=== PATIENT | female | born 1940 | race Caucasian/White ===

== ENCOUNTER 2016-07-15 12:04 | Observation (INO) | payer MEDICARE, OTHER ==
[~2016-07-15 12:04] MED LIST: ASPI325T6 PO; AZO-STANDARD95 MG PO; COLACE 100100 MG/CAP PO; FOLIC ACID0.4 MG PO; LEXAPRO 10MG10 MG PO; LIPITOR 10MG10 MG PO; MULTIPLE VITAMI1 CAP PO; NITROSTAT0.4 MG/TAB SL; NORCO 325 MG-51 TAB PO; OMEGA-31 SGL PO; PROVENTIL0.09 MG/A1 IH; RT ADVAIR 228 DISKUS IH; TYLENOL 325MG325 MG PO; VESICARE 5MG5 MG PO; VESICARE10 MG PO; VITAMIN B1250 MCG PO; VITAMIN D 50,1.25 MG PO; VITAMIN D5000 IU PO; ZITHROMAX Z PA250 MG PO
[2016-07-15] MEDS ORDERED: LEXAPRO20 MG PO (14:07)
[2016-07-15 18:37] LABS: BASO % 0.5 % (0.0-2.0); EOS # 0.1 (0.0-0.7); EOS % 0.9 % (0-4.0); GRAN # 5.8 (1.4-6.5); GRAN % 74.7 % (42.2-75.2); HEMATOCRIT 40.6 % (37.0-47.0); LYMPH # 1.4 (1.2-3.4); LYMPH % 18.2 % (20.0-51.0); MEAN CELL VOLUME 96 fl (80.0-100.0); MEAN CORPUSCULAR HEMOGLOBIN 33 pg (27.0-31.0); MEAN CORPUSCULAR HGB CONC 35 g/dl (33.0-37.0); MEAN PLATELET VOLUME 9.5 fl (7.4-10.4); MONO # 0.4 (0.1-0.6); MONO % 5.1 % (1.7-9.3); PLATELET COUNT 207 K/mm3 (130-400); RED BLOOD COUNT 4.23 M/mm3 (4.10-5.30); WHITE BLOOD COUNT 7.7 K/mm3 (4.8-10.8)
[2016-07-15 19:37] LABS: CALCIUM 9.2 mg/dL (8.4-10.2); CREATININE, serum 0.74 mg/dL (0.52-1.25); POTASSIUM 3.6 mmol/L (3.4-5.0)
[2016-07-15 23:24] VITALS: BP 123/53; PULSE 65; TEMP 98.3
[2016-07-16] VITALS (8 sets, daily range): BP systolic 92–137; BP diastolic 43–75; PULSE 59–83; TEMP 98.5–98.6
[2016-07-16 07:07] LABS: PH 6 (5-8); URINE APPEARANCE Hazy; URINE BACTERIA Rare /hpf; URINE BILIRUBIN Negative (NEGATIVE); URINE BLOOD Negative (NEGATIVE); URINE COLOR Yellow; URINE GLUCOSE Negative (NEGATIVE); URINE KETONE Negative (NEGATIVE); URINE RBC 0-2 /hpf; URINE UROBILINOGEN Negative (NEGATIVE)
[2016-07-16 07:35] LABS: BASO # 0.1 (0.0-0.2); BASO % 0.7 % (0.0-2.0); EOS # 0.1 (0.0-0.7); EOS % 1.6 % (0-4.0); GRAN # 6.3 (1.4-6.5); GRAN % 75.3 % (42.2-75.2); HEMATOCRIT 37.8 % (37.0-47.0); LYMPH # 1.3 (1.2-3.4); MEAN CELL VOLUME 96 fl (80.0-100.0); MEAN CORPUSCULAR HEMOGLOBIN 33 pg (27.0-31.0); MEAN CORPUSCULAR HGB CONC 34 g/dl (33.0-37.0); MEAN PLATELET VOLUME 10.1 fl (7.4-10.4); MONO # 0.6 (0.1-0.6); MONO % 6.9 % (1.7-9.3); PLATELET COUNT 189 K/mm3 (130-400); RED BLOOD COUNT 3.92 M/mm3 (4.10-5.30); WHITE BLOOD COUNT 8.4 K/mm3 (4.8-10.8)
[2016-07-16 07:39] LABS: INR 0.9 (0.8-3.0); PROTHROMBIN TIME 10.4 SECONDS (9.7-12.8)
[2016-07-16 07:42] LABS: PARTIAL THROMBOPLASTIN TIME 28.5 SECONDS (26.0-37.0)
[2016-07-16 08:02] LABS: CALCIUM 8.8 mg/dL (8.4-10.2); CREATININE, serum 0.71 mg/dL (0.52-1.25); POTASSIUM 3.8 mmol/L (3.4-5.0)
[2016-07-16] MEDS ORDERED: PERCOCET 325 MG1 TA2 PO (12:04)
[2016-07-16] MEDS ORDERED: ASPIRIN E.C. 8181 MG PO (12:05)
[2016-07-16] MEDS ORDERED: VALIUM 5MG T5 MG/TAB PO (12:10)
== END 2016-07-16 15:50 | disposition home health service (06) ==
LOC: SURG 12:04
PROVIDERS: Internal Medicine
DX: S32.038A Other fracture of third lumbar vertebra, initial encounter for closed fracture (principal); E78.5 Hyperlipidemia, unspecified; W10.8XXA Fall (on) (from) other stairs and steps, initial encounter; F17.210 Nicotine dependence, cigarettes, uncomplicated
CPT/HCPCS: C1713; G0378; G0379; G8978-GP; G8979-GP; J2250; J3010; J7120

== ENCOUNTER → 2017-06-09 | Outpatient (CLI) | payer MEDICARE, OTHER ==
[~2017-06-09] MED LIST changes: +ASPIRIN E.C. 8181 MG PO; +LEXAPRO20 MG PO; +PERCOCET 325 MG1 TA2 PO; +VALIUM 5MG T5 MG/TAB PO
== END ==
LOC: MC.RAD 13:00
DX: Z12.31 Encounter for screening mammogram for malignant neoplasm of breast (principal)

== ENCOUNTER → 2018-05-25 | Outpatient (CLI) | payer MEDICARE, OTHER | LOC: MC.RAD 09:12 | DX: Z12.31 Encounter for screening mammogram for malignant neoplasm of breast (principal) ==

== ENCOUNTER → 2018-06-10 | Outpatient (CLI) | payer MEDICARE, OTHER | LOC: MC.RAD 09:05 | DX: Z12.31 Encounter for screening mammogram for malignant neoplasm of breast (principal); Z98.82 Breast implant status ==

== ENCOUNTER 2019-06-06 12:17 | Emergency (ER) | payer MEDICARE, OTHER ==
[~2019-06-06] VITALS: Ht 167.6 cm; Wt 72.7 kg
[2019-06-06 12:25] VITALS: TEMP 98.7
[2019-06-06 12:49] LABS: BASO # 0.1 (0.0-0.2); BASO % 0.9 % (0.0-2.0); EOS # 0.1 (0.0-0.7); EOS % 0.8 % (0-4.0); GRAN % 65.2 % (42.2-75.2); HEMATOCRIT 41.8 % (37.0-47.0); HEMOGLOBIN 14.6 g/dl (12.5-16.0); LYMPH % 25.8 % (20.0-51.0); MEAN CELL VOLUME 97 fl (80.0-100.0); MEAN CORPUSCULAR HEMOGLOBIN 34 pg (27.0-31.0); MEAN CORPUSCULAR HGB CONC 35 g/dl (33.0-37.0); MEAN PLATELET VOLUME 9.3 fl (7.4-10.4); MONO # 0.5 (0.1-0.6); MONO % 6.9 % (1.7-9.3); PLATELET COUNT 272 K/mm3 (130-400); RED BLOOD COUNT 4.32 M/mm3 (4.10-5.30)
[2019-06-06 12:57] LABS: INR 0.8 (0.8-3.0); PROTHROMBIN TIME 9.8 SECONDS (9.7-12.8)
[2019-06-06 13:03] LABS: ALANINE AMINOTRANSFERASE 36 U/L (9-52); ALBUMIN 4.2 gm/dL (3.5-5.0); ALKALINE PHOSPHATASE 87 U/L (50-136); ANION GAP 8 mmol/L (7-16); AST,SGOT 37 U/L (15-37); BILIRUBIN,TOTAL 0.8 mg/dL (0.0-1.0); BLOOD UREA NITROGEN 18 mg/dL (7-17); CALCIUM 9.6 mg/dL (8.4-10.2); CARBON DIOXIDE 27 mmol/L (22-30); CHLORIDE 107 mmol/L (98-107); CREATININE, serum 0.61 (0.52-1.25); GLUCOSE 96 mg/dL (74-106); LIPASE 93 U/L (23-300); SODIUM 142 mmol/L (137-145)
[2019-06-06 13:17] LABS: TROPONIN-I < 0.012 ng/mL (0.000-0.035)
[2019-06-06 17:34] VITALS: BP 116/63; PULSE 66
== END 2019-06-06 17:43 | disposition home or self-care (01) ==
LOC: COL.ER 12:17
PROVIDERS: Emergency Medicine
DX: R00.2 Palpitations (principal); F17.210 Nicotine dependence, cigarettes, uncomplicated; Z98.890 Other specified postprocedural states; Z90.710 Acquired absence of both cervix and uterus
CPT/HCPCS: J7030

== ENCOUNTER → 2019-06-27 | Outpatient (CLI) | payer MEDICARE, OTHER | LOC: MC.RAD 13:00 | DX: Z12.31 Encounter for screening mammogram for malignant neoplasm of breast (principal) ==

== ENCOUNTER → 2020-09-20 | Outpatient (CLI) | payer MEDICARE, OTHER | LOC: MC.RAD 11:15 | DX: Z12.31 Encounter for screening mammogram for malignant neoplasm of breast (principal); Z98.82 Breast implant status ==

== ENCOUNTER → 2022-01-02 | Outpatient (CLI) | payer MEDICARE | LOC: MC.RAD 09:00 | DX: Z12.31 Encounter for screening mammogram for malignant neoplasm of breast (principal) ==